=== PATIENT | female | born 1995 | race Caucasian/White ===

== ENCOUNTER 2017-03-28 03:03 | Emergency (ER) | payer OTHER ==
[~2017-03-28] VITALS: Ht 165.1 cm; Wt 71.4 kg
[2017-03-28 06:31] VITALS: BP 120/75
== END 2017-03-28 06:32 | disposition home or self-care (01) ==
LOC: M ED 03:03
DX: O99.340 Other mental disorders complicating pregnancy, unspecified trimester (principal); F43.0 Acute stress reaction; Z3A.00 Weeks of gestation of pregnancy not specified

== ENCOUNTER 2017-04-30 16:46 | Emergency (ER) | payer OTHER ==
[~2017-04-30] VITALS: Ht 165.1 cm; Wt 72.7 kg
[2017-04-30] MEDS ORDERED: PRENTAB40 PO (17:02)
--- NOTE | 2017-04-30 19:30 | REPUSA ---
OBSTETRICAL ULTRASOUND INDICATION: OB screening. FINDINGS: A single live intrauterine gestation was identified with a heart rate of 140 bpm. The amniotic fluid volume is grossly within normal limits cm. The placenta was anterior, without evidenc e of abruption or placenta previa. The fetus was in a cephalic lie. The cervix measures 3.8 cm in [facility] and is closed. Estimated weight is 146 g. Limited visualized anatomy is grossly unrem arkable. BIOMETRIC MEASUREMENTS BPD 3.2 cm HC 12.3 cm AC 10.9 cm FL 1.8 cm IMPRESSION: 1. Single live fetus based on today's measurements at 16 weeks, with estimated due date of 10/15/2017. 2. No gross abnormality appreciated.
[2017-04-30] MEDS ORDERED: MACR100C43 PO (19:36)
[2017-04-30] MEDS ORDERED: NITROFURANTOIN (MACROBID) 100 MG CAP PO ONE (19:45)
[2017-04-30 20:01] VITALS: BP 113/66
== END 2017-04-30 20:05 | disposition home or self-care (01) ==
LOC: M ED 16:46
DX: O23.32 Infections of other parts of urinary tract in pregnancy, second trimester (principal); Z3A.16 16 weeks gestation of pregnancy; Z87.891 Personal history of nicotine dependence; Z88.1 Allergy status to other antibiotic agents; Z88.2 Allergy status to sulfonamides

== ENCOUNTER 2017-10-20 10:35 | Inpatient (IN) | payer OTHER ==
[2017-10-20 12:16] LABS: HEMATOCRIT 30.6 % (36.0-47.0); HEMOGLOBIN 9.7 g/dl (12.0-15.5); MEAN CORPUSCULAR HEMOGLOBIN 25.1 pg (27.0-33.0); MEAN CORPUSCULAR HGB CONC 31.7 g/dl (32.0-36.5); MEAN CORPUSCULAR VOLUME 79.3 fl (80.0-96.0); PLATELET COUNT, AUTOMATED 166 10^3/uL (150-450); RED BLOOD COUNT 3.86 10^6/uL (4.00-5.40); RED CELL DISTRIBUTION WIDTH 14.6 % (11.5-14.5); WHITE BLOOD COUNT 12.1 10^3/uL (4.0-10.0)
[2017-10-20] MEDS: miSOPROStol 50 MCG 1/2 TAB (S0191) PO ×3 (12:18→20:00)
[2017-10-20 12:34] LABS: AMPHETAMINES URINE REFLEX NEGATIVE (NEGATIVE); BARBITURATES URINE REFLEX NEGATIVE (NEGATIVE); BENZODIAZEPINES URINE REFLEX NEGATIVE (NEGATIVE); CANNABINOIDS URINE REFLEX NEGATIVE (NEGATIVE); COCAINE METABOLITE URINE REFLE NEGATIVE (NEGATIVE); METHADONE URINE REFLEX NEGATIVE (NEGATIVE); OPIATES URINE REFLEX NEGATIVE (NEGATIVE); PHENCYCLIDINE URINE REFLEX NEGATIVE (NEGATIVE)
[2017-10-21] MEDS ORDERED: PROMETHAZINE INJ 25 MG/ML VIAL (J2550) As Ordered (04:59)
[2017-10-21] MEDS ORDERED: BUTORPHANOL 2 MG/ML INJ (J0595) As Ordered (05:00)
[2017-10-21] MEDS: BUTORPHANOL 2 MG/ML INJ (J0595) IV (05:15)
[2017-10-21] MEDS: PROMETHAZINE INJ 25 MG/ML VIAL (J2550) IV (05:15)
[2017-10-21] MEDS ORDERED: LR 1,000 ML IV ×2 (07:00→14:05)
[2017-10-21] MEDS ORDERED: FENTANYL 2MCG/ML ROPIVACAINE 0.2% IN 0.9% NACL 200ML IVBAG As Ordered (12:26)
[2017-10-21] MEDS ORDERED: LACTATED RINGER'S 1000 ML IV (13:30)
[2017-10-21] MEDS ORDERED: EPIDURAL COMMENT XX (13:30)
[2017-10-21] MEDS ORDERED: NALOXONE INJ 0.4 MG/1 ML VIAL (J2310) IV (13:30)
[2017-10-21] MEDS ORDERED: diphenhydrAMINE INJ 50MG/ML VIAL (J1200) IV (13:30)
[2017-10-21] MEDS ORDERED: ONDANSETRON 4MG/2ML VIAL (J2405) IV ×2 (13:30→19:30)
[2017-10-21] MEDS ORDERED: FENTANYL/ROPIVACAINE/NACL BAG 200 ML EPIDURAL (13:30)
[2017-10-21] MEDS ORDERED: EPIDURAL/PCA KEYS XX (13:30)
[2017-10-21] MEDS ORDERED: REFRIGERATOR IV KEYS XX (13:30)
[2017-10-21] MEDS: OXYTOCIN DRIP 30 UNITS in APPROPRIATE DILUENT 1 EA IV (14:28)
[2017-10-21] MEDS: ePHEDrine SULFATE 25 MG/5 ML(5MG/ML) SYRINGE IV (14:28)
[2017-10-21] MEDS ORDERED: METHYLERGONOVINE MALEATE 0.2 MG/ML VIAL (J2210) IM (19:30)
[2017-10-21] MEDS ORDERED: ACETAMINOPHEN 500 MG TAB PO (19:30)
[2017-10-21] MEDS ORDERED: RHOGAM 300 MCG (1500 IU) INJ (J2790) IM (19:30)
[2017-10-21] MEDS ORDERED: DIBUCAINE 1% OINTMENT 30GM TOP (19:30)
[2017-10-21] MEDS ORDERED: MEASLES,MUMPS,RUBELLA VACCINE INJ (MMR-II) (90707) SC (19:30)
[2017-10-21] MEDS ORDERED: PROMETHAZINE 25 MG TAB PO (19:30)
[2017-10-21] MEDS: DOCUSATE SODIUM 100 MG CAP PO (22:14)
[2017-10-22] MEDS: IBUPROFEN 800 MG TAB PO ×2 (00:33→21:09)
[2017-10-22] MEDS: OXYTOCIN DRIP 30 UNITS in APPROPRIATE DILUENT 1 EA IV (02:00)
[2017-10-22] MEDS: DOCUSATE SODIUM 100 MG CAP PO ×2 (09:38→21:09)
[2017-10-22] MEDS: PRENATAL VITAMINS CHEWABLE TABLET PO (09:39)
[2017-10-23] MEDS: PRENATAL VITAMINS CHEWABLE TABLET PO (08:29)
[2017-10-23] MEDS: DOCUSATE SODIUM 100 MG CAP PO (08:29)
== END 2017-10-23 10:50 | disposition home or self-care (01) | DRG 775 ==
LOC: M LDI 10:35 → M OBS 10-21 21:18
PROVIDERS: Obstetrics & Gynecology
PROC: 3E0P7GC Introduction of Other Therapeutic Substance into Female Reproductive, Via Natural or Artificial Opening (ICD-10-PCS; 2017-10-20)
PROC: 10E0XZZ Delivery of Products of Conception, External Approach (ICD-10-PCS; principal; 2017-10-21)
PROC: 0HQ9XZZ Repair Perineum Skin, External Approach (ICD-10-PCS; 2017-10-21)
DX: O48.0 Post-term pregnancy (principal); Z3A.41 41 weeks gestation of pregnancy; O70.0 First degree perineal laceration during delivery; Z37.0 Single live birth

== ENCOUNTER 2017-11-04 13:28 | Emergency (ER) | payer OTHER ==
[2017-11-04 14:17] LABS: KETONE, URINE AUTO RFX NEGATIVE (NEGATIVE); MUCUS, URINE RFX SMALL (NEGATIVE); NITRITE, URINE AUTO RFX NEGATIVE (NEGATIVE); RBC, URINE AUTO RFX 4 /HPF (0-3); SPECIFIC GRAVITY UR AUTO RFX 1.027 (1.002-1.035); SQUAM EPITHELIAL CELL UR AURFX 1 /HPF (0-6)
[2017-11-04 14:19] LABS: LEUKOCYTE ESTERASE UR AUTO RFX 3+ (NEGATIVE); WBC, URINE AUTO RFX 72 /HPF (0-3)
== END 2017-11-04 15:24 | disposition home or self-care (01) ==
LOC: M ED 13:28
DX: N30.90 Cystitis, unspecified without hematuria (principal); Z88.1 Allergy status to other antibiotic agents; Z88.2 Allergy status to sulfonamides; Z87.891 Personal history of nicotine dependence
CPT/HCPCS: 81001

== ENCOUNTER 2017-12-17 12:22 | Emergency (ER) | payer OTHER ==
[2017-12-17 14:33] LABS: BASO # 0.1 10^3/uL (0.0-0.2); BASO % 1.3 % (0.0-1.0); EOS # 0.4 10^3/uL (0.0-0.50); EOS % 6.4 % (0.0-3.0); HEMOGLOBIN 11.7 g/dl (12.0-15.5); IMMATURE GRANULOCYTE % 0.1 % (0-3.0); LYMPH # 2.9 10^3/uL (1.5-6.5); LYMPH % 42.2 % (24.0-44.0); MEAN CORPUSCULAR HEMOGLOBIN 24.6 pg (27.0-33.0); MEAN CORPUSCULAR HGB CONC 32.5 g/dl (32.0-36.5); MEAN CORPUSCULAR VOLUME 75.6 fl (80.0-96.0); MONO # 0.3 10^3/uL (0.0-0.8); MONO % 4.8 % (0.0-5.0); NEUTROPHILS # 3.1 10^3/uL (1.8-7.7); NEUTROPHILS % 45.2 % (36.0-66.0); PLATELET COUNT, AUTOMATED 252 10^3/uL (150-450); RED BLOOD COUNT 4.76 10^6/uL (4.00-5.40); RED CELL DISTRIBUTION WIDTH 15.4 % (11.5-14.5); WHITE BLOOD COUNT 6.8 10^3/uL (4.0-10.0)
[2017-12-17] MEDS: NS 1,000 ML IV (14:39)
[2017-12-17 15:01] LABS: ANION GAP 14 MEQ/L (8-16); BLOOD UREA NITROGEN 6 MG/DL (7-18); CALCIUM LEVEL 8.9 MG/DL (8.5-10.1); CARBON DIOXIDE LEVEL 24 MEQ/L (21-32); CHLORIDE LEVEL 106 MEQ/L (98-107); GLOMERULAR FILTRATION RATE > 60.0 (>60); GLUCOSE, FASTING 73 MG/DL (70-100); HCG, SERUM QUANTITATIVE < 1.0 MIU/ML; POTASSIUM SERUM 3.7 MEQ/L (3.5-5.1); SODIUM LEVEL 144 MEQ/L (136-145)
== END 2017-12-17 15:54 | disposition home or self-care (01) ==
LOC: M ED 12:22
DX: N92.0 Excessive and frequent menstruation with regular cycle (principal); F41.9 Anxiety disorder, unspecified; Z87.42 Personal history of other diseases of the female genital tract; Z88.1 Allergy status to other antibiotic agents; Z88.2 Allergy status to sulfonamides
CPT/HCPCS: 76856

== ENCOUNTER 2018-09-30 14:53 | Emergency (ER) | payer OTHER ==
[~2018-09-30] VITALS: Ht 167.6 cm; Wt 77.3 kg
[~2018-09-30 14:53] MED LIST: COLA100C5 PO; DIBU10OI TOP; IBUP-1114 PO; KEFL500C17 PO; MACR100C43 PO; MAPA500T2 PO; PRENTAB40 PO; TUMS500C PO
[2018-09-30 14:54] VITALS: BP 124/76
== END 2018-09-30 16:15 | disposition home or self-care (01) ==
LOC: M ED 14:53
DX: Z04.71 Encounter for examination and observation following alleged adult physical abuse (principal); Y04.8XXA Assault by other bodily force, initial encounter; Y07.01 Husband, perpetrator of maltreatment and neglect; Y92.018 Other place in single-family (private) house as the place of occurrence of the external cause; F33.9 Major depressive disorder, recurrent, unspecified; F41.9 Anxiety disorder, unspecified; Z88.1 Allergy status to other antibiotic agents; Z88.2 Allergy status to sulfonamides; F17.210 Nicotine dependence, cigarettes, uncomplicated

== ENCOUNTER 2018-12-18 08:48 | Emergency (ER) | payer OTHER ==
[~2018-12-18] VITALS: Ht 167.6 cm; Wt 77.3 kg
--- NOTE | 2018-12-18 10:53 | REP ---
Clinical: Trauma Comparison: None . Findings: The ventricles, sulci, and cisterns are normal in position and appearance. Siu-white differentiation is maintained. No acute intracranial hemorrhage, mass/mass effect, pathology or trauma/injury. No evidence for acute infarction. No extra-axial fluid collection. Calvarium is intact. Paranasal sinuses and mastoid air cells are clear. Impression: Normal noncontrast head CT. No evidence for acute intracranial pathology or trauma/injury. Electronically Signed by Loco Lu MD 12/18/2018 10:45 A
[2018-12-18 11:19] VITALS: BP 109/69
== END 2018-12-18 11:20 | disposition home or self-care (01) ==
LOC: M ED 08:48
DX: S01.01XA Laceration without foreign body of scalp, initial encounter (principal); W17.89XA Other fall from one level to another, initial encounter; Y92.139 Unspecified place military base as the place of occurrence of the external cause; Y99.1 Military activity; F17.210 Nicotine dependence, cigarettes, uncomplicated; Z88.2 Allergy status to sulfonamides

== ENCOUNTER 2019-05-04 02:35 | Emergency (ER) | payer OTHER ==
[~2019-05-04] VITALS: Ht 167.6 cm; Wt 81.4 kg
[2019-05-04 02:36] VITALS: BP 136/81
== END 2019-05-04 03:28 | disposition home or self-care (01) ==
LOC: M ED 02:35
DX: Z04.71 Encounter for examination and observation following alleged adult physical abuse (principal); Z88.2 Allergy status to sulfonamides

== ENCOUNTER 2019-05-25 18:51 | Emergency (ER) | payer OTHER ==
[~2019-05-25] VITALS: Ht 167.6 cm; Wt 80.5 kg
[2019-05-25 18:51] VITALS: BP 140/89
== END 2019-05-25 20:20 | disposition home or self-care (01) ==
LOC: M ED 18:51
DX: Z04.1 Encounter for examination and observation following transport accident (principal); V43.52XA Car driver injured in collision with other type car in traffic accident, initial encounter; Y92.410 Unspecified street and highway as the place of occurrence of the external cause; F17.200 Nicotine dependence, unspecified, uncomplicated; Z87.820 Personal history of traumatic brain injury; Z88.2 Allergy status to sulfonamides